=== PATIENT | male | born 1985 | race Two or more races ===

== ENCOUNTER 2023-10-29 06:49 | Emergency (ER) | payer OTHER ==
[~2023-10-29] VITALS: Ht 175.3 cm; Wt 88.6 kg
[2023-10-29 07:08] VITALS: TEMP 98.2
[2023-10-29] MEDS: HYDROGEN PEROXIDE 118 ML SOLUTION TP ONE (07:23)
[2023-10-29] MEDS: PERTUSS(ACELL),DIPH,TET/PF 0.5 ML SYRINGE [ADULT] IM. ONE (07:33)
[2023-10-29 08:00] VITALS: BP 127/88; PULSE 85; RESP 18
== END 2023-10-29 08:10 | disposition home or self-care (01) ==
LOC: EMS 06:49
DX: S20.312A Abrasion of left front wall of thorax, initial encounter (principal); S60.412A Abrasion of right middle finger, initial encounter; V09.9XXA Pedestrian injured in unspecified transport accident, initial encounter; Y93.89 Activity, other specified; Y92.89 Other specified places as the place of occurrence of the external cause; Y99.8 Other external cause status
CPT/HCPCS: 90471; 90715; 99283